=== PATIENT | female | born 1960 | race African-American/Black ===

== ENCOUNTER → 2017-02-13 | Outpatient (CLI) | payer MEDICARE ==
[~2017-02-13] MED LIST: ACET-2321 PO; ALBU18HF2 ORAL INH; CARB15DR82 BOTH EYES; DIPH50CA4 PO; DIVA500T37 PO; FLUT1DIS3 INH; FURO20TA4 PO; LEVO50TA11 PO CHEW; LORA10TA7 PO; PRED10TA PO; PROP10TA10 PO; RISP4TAB17 PO
[2017-02-13 12:22] LABS: BASOPHILS % (AUTO) 0.3 % (0-2); EOSINOPHILS % (AUTO) 0.3 % (0-4); HCT - HEMATOCRIT 40.5 % (36-46); HGB - HEMOGLOBIN 12.9 GM/DL (12-16); IMMATURE GRANULOCYTE # (AUTO) 0.01 T/MM3 (0.00-0.03); IMMATURE GRANULOCYTE % (AUTO) 0.3 % (0.0-0.5); LYMPHOCYTES # (AUTO) 0.8 T/MM3 (1-4.8); LYMPHOCYTES % (AUTO) 28.7 % (23-45); MEAN CORPUSCULAR HGB 29.5 UUG (26-34); MEAN CORPUSCULAR HGB CONC(MCHC 31.9 GM/DL (31-37); MEAN CORPUSCULAR VOLUME 92.5 UM3 (80-100); MEAN PLATELET VOLUME 11.3 UM3 (9.4-12.4); MONOCYTES # (AUTO) 0.3 T/MM3 (0-0.8); MONOCYTES % (AUTO) 10.7 % (0-9.0); NEUTROPHILS #(AUTO)-ABSOLUTE 1.7 T/MM3 (1.8-7.7); NEUTROPHILS % (AUTO) 59.7 % (33-66); RED BLOOD COUNT 4.38 M/MM3 (4.00-5.20); WBC - WHITE BLOOD COUNT 2.9 T/MM3 (4.5-11.0)
== END ==
LOC: LAB 11:55
PROVIDERS: ATTEND Registered Nurse Psychiatric/Mental Health
DX: Z79.899 Other long term (current) drug therapy (principal)
CPT/HCPCS: 36415; 85025

== ENCOUNTER → 2017-04-09 | Outpatient (CLI) | payer MEDICARE ==
[2017-04-09 09:04] LABS: EOSINOPHILS % (AUTO) 0.3 % (0-4); HCT - HEMATOCRIT 39.1 % (36-46); HGB - HEMOGLOBIN 12.4 GM/DL (12-16); IMMATURE GRANULOCYTE # (AUTO) 0.04 T/MM3 (0.00-0.03); IMMATURE GRANULOCYTE % (AUTO) 1.4 % (0.0-0.5); LYMPHOCYTES # (AUTO) 0.8 T/MM3 (1-4.8); LYMPHOCYTES % (AUTO) 26.9 % (23-45); MEAN CORPUSCULAR HGB CONC(MCHC 31.7 GM/DL (31-37); MEAN CORPUSCULAR VOLUME 91.6 UM3 (80-100); MEAN PLATELET VOLUME 10.8 UM3 (9.4-12.4); MONOCYTES # (AUTO) 0.4 T/MM3 (0-0.8); MONOCYTES % (AUTO) 12.9 % (0-9.0); NEUTROPHILS #(AUTO)-ABSOLUTE 1.7 T/MM3 (1.8-7.7); NEUTROPHILS % (AUTO) 58.5 % (33-66); RED BLOOD COUNT 4.27 M/MM3 (4.00-5.20); WBC - WHITE BLOOD COUNT 2.9 T/MM3 (4.5-11.0)
[2017-04-09 09:10] LABS: BLOOD, URINE TRACE-INTACT (NEGATIVE); COLOR,URINE YELLOW (YELLOW); LEUKOCYTE ESTERASE ,URINE 2+ (NEGATIVE); NITRITE,URINE NEGATIVE (NEGATIVE); UROBILINOGEN,URINE 0.2 EU/DL (NORMAL)
[2017-04-09 09:15] LABS: ALBUMIN 4.1 G/DL (3.5-5.0); ALBUMIN/GLOBULIN RATIO 1.1 RATIO (1.1-2.2); ALKALINE PHOSPHATASE 82 U/L (38-126); ALT (SGPT) 35 U/L (9-52); ANION GAP 13 MEQ/L (5-15); AST (SGOT) 73 U/L (14-36); BUN/CREATININE RATIO 17 RATIO (6-26); CALCIUM 9.6 MG/DL (8.4-10.2); CHLORIDE 106 MEQ/L (98-107); CO2 - CARBON DIOXIDE 29 MEQ/L (22-30); CREATININE 0.9 MG/DL (0.7-1.2); GLOMERULAR FILTRATION RATE 65; GLUCOSE 80 MG/DL (65-110); POTASSIUM 4.3 MEQ/L (3.6-5); SODIUM 148 MEQ/L (134-144); TOTAL PROTEIN 7.8 G/DL (6.3-8.2)
[2017-04-09 09:21] LABS: VALPROIC ACID/DEPAKOTE 97.6 UG/ML (50-120)
[2017-04-09 09:22] LABS: BACTERIA,URINE TRACE (NEGATIVE); RBC,URINE 0-1 /HPF (0-3)
[2017-04-09 10:00] LABS: THYROID STIM HORMONE-TSH 7.36 MIU/L (0.47-4.68)
[2017-04-10 03:30] LABS: LDL CHOLESTEROL,CALCULATED 95.2 (66-159); RISK FACTOR 3.9 RATIO (0-4.0); VLDL CHOLESTEROL 24.8 MG/DL (0-28)
[2017-04-10 04:17] LABS: CREATININE, URINE RANDOM 154.2 MG/DL
== END ==
LOC: LAB 08:31
PROVIDERS: ATTEND Internal Medicine
DX: E03.9 Hypothyroidism, unspecified (principal); R25.1 Tremor, unspecified; D72.819 Decreased white blood cell count, unspecified; I10 Essential (primary) hypertension; F31.9 Bipolar disorder, unspecified
CPT/HCPCS: 36416; 80053; 80061; 80164; 81001; 82043; 82570; 82607; 82746; 84443; 85025